=== PATIENT | male | born 1980 | race Caucasian/White ===

== ENCOUNTER → 2023-05-05 10:14 | Outpatient (REF) | payer BC, SELFPAY | LOC: RAD 10:14 | PROVIDERS: ATTENDING PHYSICIAN Emergency Medicine | DX: R07.89 Other chest pain (principal) | CPT/HCPCS: 71101 ==

== ENCOUNTER 2024-03-17 14:47 | Emergency (ER) | payer BC, SELFPAY ==
[2024-03-17 14:50] VITALS: BP 144/93
[2024-03-17 14:51] VITALS: BP 144/93
--- NOTE | 2024-03-17 14:59 | ED.GENMED ---
History of Present Illness
General
Chief Complaint: Cold/Flu/URI Symptoms
Source: patient
Exam Limitations: none
Time Seen by Provider: 03/17/24 14:49
History of Present Illness
History of Present Illness:
44-year-old male presents via EMS from home. He states he had a fever cough and fatigue over the past 4 days. He had an episode today where he became very short of breath and he was numb and tingling in his arms and legs. He states he almost
passed out at home and his mother called EMS. There has been no vomiting. He tried an inhaler at home without relief. No chest pain. No other complaint
Past History
Past History
ED Past Medical History: None
ED Past Surgical History: None
Social History
Tobacco: Non-smoker
Alcohol: None
Drug: None
Living: with family
Phy Exam
Physical Exam
Physical Exam:
General: Well-appearing male no acute respiratory distress HEENT: Normal cephalic atraumatic heart:
Regular rate and rhythm
Lungs: Bilateral inspiratory and expiratory wheeze
Abdomen soft nontender nondistended no guarding rebound
Extremities: No cyanosis
Abdomen is soft nontender nondistended
Course
Orders/Labs/Results
Orders:
Orders
03/17/24 14:54
Electrocardiogram (*1) Urgent
Reason for Study: Shortness of Breath
EKG- Treatment ONCE
03/17/24 14:55
COVID-19 Antigen Urgent
Source: Nasal Swab
Influenza A+B Rapid Molecular Urgent
ALEX Source: Nasal Swab
Specimen Description:
03/17/24 14:58
Dexamethasone Sod Phosphate [Decadron] 10 mg IV NOW STA
Ipratropium/Albuterol Sulfate [Duoneb] 3 ml INH R NOW STA
03/17/24 14:59
Complete Blood Count/With Diff Urgent
Comprehensive Metabolic Panel Urgent
CR Chest - 2 Views Urgent
Comment:
Reason For Exam: sob, cough
Abnormal Lab Results
03/17/24
14:59
ALT 63 H U/L
(0-50)
03/17/24 14:59
03/17/24 14:59
Vital Signs
Initial and Last Documented VS:
Initial Vital Signs
Temp Pulse Resp BP Pulse Ox
97.8 F 76 22 144/93 100
03/17/24 14:50 03/17/24 14:50 03/17/24 14:50 03/17/24 14:50 03/17/24 14:50
Last Documented Vital Signs
Temp Pulse Resp BP Pulse Ox
97.8 F 76 22 144/93 100
03/17/24 14:50 03/17/24 14:50 03/17/24 14:50 03/17/24 14:51 03/17/24 14:56
MDM/Problems Addressed
Differential Diagnosis Includes:
Patient with cough shortness of breath near syncope at home. This was preceded by several days of cough and fatigue. Vital signs are stable but he is wheezing on exam. Question bronchitis versus flu versus COVID. Will order chest x-ray to
evaluate for pneumonia. Nebulizer and Decadron ordered
*Critical Care Note
Total Time (30-74mins, 75-104mins- exclusive of procedures): Not Applicable
Update Note
Update Note:
Chest x-ray clear no sign of pneumonia. Labs reviewed without significant finding. COVID and flu are negative. Patient feeling better after nebulizer. No respiratory distress upon reassessment. I suspect underlying viral mediated etiology as a
source of his bronchitis but stable for discharge
ED Attending Note
-
Portions of this chart may have been created with voice recognition software.� Occasional wrong word or��sound alike� substitutions may have occurred due to the inherent limitations of voice recognition software.
Discharge Plan
Departure
Patient Disposition: Home (Routine Discharge)
Date of Disposition: 03/17/24
Time of Disposition: 16:11
Patient with high blood pressure during this ER visit?: No
Discharge Problem:
Acute bronchitis
Instructions: Acute Bronchitis, Adult (DC)
Prescriptions:
New
prednisone 20 mg tablet
40 mg PO DAILY 5 Days Qty: 10 0RF
albuterol sulfate 2.5 mg /3 mL (0.083 %) solution for nebulization
2.5 mg inhalation Q4H PRN (Reason: bronchospasm) Qty: 75 0RF
No Action
cyclobenzaprine 10 MG tablet
10 mg PO TIDPRN PRN (Reason: Pain) Qty: 15 0RF
naproxen 500 MG tablet
500 mg PO BID Qty: 20 0RF
Referrals:
UNKNOWN - PT DOES,NOT KNOW [Unknown Provider] -
Activity Restrictions/Additional Instructions:
Use nebulizer every 4-6 hours as needed. Use steroid as directed. Return here if worse otherwise follow-up with your doctor
Interventions
Interventions:
*Risk Screen - Suicide Last Done: 03/17/24 15:01
*General Assessment Last Done: 03/17/24 15:01
*Neglect/Abuse Screening Last Done: 03/17/24 15:01
ED- Fall Risk Assessment Last Done: 03/17/24 14:56
*ED COVID-19 Vaccine History Last Done: 03/17/24 15:01
ED- Pulmonary Assessment Last Done: 03/17/24 14:56
Discharge Date and Time
Print Language: HUNGARIAN
[2024-03-17 15:00] VITALS: BP 125/105
[2024-03-17 15:03] VITALS: BMI 27.1
[2024-03-17] MEDS: DUONEB 3 ML INH (15:10)
[2024-03-17] MEDS: DECADRON 10 MG IV (15:10)
[2024-03-17 15:24] LABS: % Basophils 0.5 % (0-2); % Eosinophils 5.8 % (0-6); % Immature Granulocytes 0.5 % (0-0.5); % Lymphocytes 26.7 % (20.5-51.1); % Monocytes 8.2 % (1.7-9.3); % Neutrophils 58.3 % (42.2-75.2); Absolute Eosinophils 0.3 10^3/uL (0-0.7); Absolute Lymphocytes 1.6 10^3/uL (1.2-3.4); Absolute Monocytes 0.5 10^3/uL (0.1-0.6); Absolute Neutrophils 3.4 10^3/uL (1.4-6.5); Hematocrit 44.2 % (39.0-52.0); Hemoglobin 15.4 g/dL (13.0-18.0); Mean Corp Hgb Conc. 34.8 g/dL (33.0-37.0); Mean Corpuscular Hgb 30.9 pg (27.0-31.0); Mean Corpuscular Volume 88.6 fL (80.0-94.0); Mean Platelet Volume 9.4 fL (7.4-10.4); Nucleated Red Blood Cells % 0 % (-); Platelet Count 260 10^3/uL (130-400); Red Blood Cell Count 4.99 10^6/uL (4.70-6.10); Red Cell Dist. Width 12.1 % (11.5-14.5); White Blood Cell Count 5.9 10^3/uL (4.8-10.8)
[2024-03-17 15:33] LABS: ALT (SGPT) 63 U/L (0-50); AST (SGOT) 39 U/L (17-59); Albumin 4.1 g/dl (3.5-5.0); Alkaline Phosphatase 78 U/L (38-126); Blood Urea Nitrogen 14 mg/dl (9-20); Carbon Dioxide 26 mmol/L (22-30); Chloride 105 mmol/L (98-107); Estimated Creatinine Clearance 88 ml/min; Glucose 97 mg/dl (70-99); Potassium 3.9 mmol/L (3.5-5.1); Sodium 140 mmol/L (135-145); Total Bilirubin 0.2 mg/dl (0.2-1.3); Total Protein 6.7 g/dl (6.3-8.2); eGFR > 60.00
[2024-03-17 15:38] LABS: COVID-19 Antigen Negative (Negative)
[2024-03-17 16:23] VITALS: BP 125/87
== END 2024-03-17 16:27 | disposition home or self-care (01) ==
LOC: EMR 14:47
PROVIDERS: Physician Assistant; EMERGENCY PHYSICIAN Student in an Organized Health Care Education/Training Program; FAMILY PHYSICIAN Nurse Practitioner Family
DX: J20.9 Acute bronchitis, unspecified (principal)
CPT/HCPCS: 96374; 94640; 99285; 71046; 80053; 85025; 87502; 87811; 93005